=== PATIENT | female | born 1995 | race Caucasian/White ===

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

== ENCOUNTER 2017-04-08 21:04 | Emergency (ER) | payer SELFPAY ==
[~2017-04-08] VITALS: Ht 154.9 cm; Wt 45.4 kg
[~2017-04-08 21:04] MED LIST changes: +PHEN-640 PO; +SULF1TAB35 PO
[2017-04-08] MEDS ORDERED: RX-TOBRA/DEXAMETH (TOBRADEX) OP. SUSP 2.5 ML BTL OU STA (22:51)
--- NOTE | 2017-04-08 22:58 | ED EENT ---
History of Present Illness General Chief Complaint: Eye Problems Stated Complaint: SWOLLEN RIGHT EYE Nursing Triage Note: Ambulatory to ED 8 with reports of right eye redness, swelling, drainage and pain x 4-5 hours. Denies any known exposure. Reports pain is causing her to have a migraine. "Do you think I will be here long? This really, really hurts, and I know you guys are busy, but I don't want to keep hurting this bad." Source: patient Exam Limitations: no limitations History of Present Illness Time seen by provider: 22:40 Initial Comments Here with report of acute onset of right eye redness and purulent drainage. This started about 5 p.m. tonight. States that it does hurt. Also complains of sinus congestion and sinus infection for the last week. She is currently on Tamiflu. States that has not changed things much. Timing/Duration: abrupt Severity: moderate Location: eye (R) Prearrival Treatment: no prearrival treatment Associated Symptoms: No cough, facial pain/swelling, No fever, nasal congestion /drainage, sinus infection, No sore throat Allergies and Home Medications Allergies Coded Allergies: Cephalexin (Unverified Allergy, Mild, 11/08/08) Hydroxyzine (Unverified Allergy, Mild, 11/05/08) Home Medications Cephalexin Monohydrate 250 Mg/5 Ml Susp, 1.5 TSP PO QID for 5 Days, Ref 0 Prescribed by: DORA THOMPSON on 11/05/082327 Montelukast Sodium 10 Mg Tab, (Reported) Pedi Multivit No.7/Folic Acid 100 Mcg Tab.chew, (Reported) Phenazopyridine HCl 200 Mg Tablet, 1 TAB PO TID, #15 Prescribed by: JASMIN BAKER on 09/05/16 2334 Sulfamethoxazole/Trimethoprim 1 Each Tablet, 1 EACH PO BID, #30 Prescribed by: JASMIN BAKER on 09/05/16 2334 Trimethoprim/Sulfamethoxazole 30 Ml Susp, (Reported) [Lincomycin] , (Reported) Review of Systems Constitutional: see HPI, No chills, No fever Eyes: See HPI, Drainage, Inflammation, Pain Ears: No Symptoms Reported Nose: see HPI, congestion Mouth: no symptoms reported Throat: no symptoms reported Respiratory: no symptoms reported, No cough, No short of breath Cardiovascular: no symptoms reported Gastrointestinal: no symptoms reported Neurological: No Symptoms Reported Past Bgkwdzp-Xehgps-Lbievf Hx Patient Social History Alcohol Use: Denies Use Recreational Drug Use: No Smoking Status: Never a Smoker 2nd Hand Smoke Exposure: No Recent Foreign Travel: No Contact w/Someone Who Travel: No Recent Infectious Disease Expo: No Recent Hopitalizations: No Ebola Symptoms: Denies Symptoms Listed Physical Abuse: No Sexual Abuse: No Mistreated: No Fear: No Immunizations Up To Date Tetanus Booster (TDap): Less than 5yrs PED Vaccines UTD: Yes Seasonal Allergies Seasonal Allergies: Yes Surgeries History of Surgeries: Yes Surgeries: Adenoidectomy, Tonsillectomy Respiratory History of Respiratory Disorde: No Cardiovascular History of Cardiac Disorders: No Neurological History of Neurological Disord: No Reproductive System Female Reproductive Disorders: Denies Genitourinary History of Genitourinary Disor: No Genitourinary Disorders: Bladder Infection Gastrointestinal History of Gastrointestinal Di: No Musculoskeletal History of Musculoskeletal Dis: No Endocrine History of Endocrine Disorders: No HEENT History of HEENT Disorders: No Cancer History of Cancer: No Psychosocial History of Psychiatric Problem: No Suicide Risk Score: 0 Integumentary History of Skin or Integumenta: No Blood Transfusions History of Blood Disorders: No Reviewed Nursing Assessment Reviewed/Agree w Nursing PMH: Yes Family Medical History Significant Family History: No Pertinent Family Hx Physical Exam Vital Signs Vital Sign - Last 12Hours 04/08/17 21:22 Temp 98.4 Pulse 92 Resp 16 B/P (MAP) 124/83 O2 Delivery Room Air General Appearance: WD/WN, no apparent distress Eyes: right eye conjunctival inflammation, right eye lid inflammation, right eye other (purulent drainage noted to eye.), left eye normal inspection, bilateral eye PERRL, bilateral eye EOMI Ears: bilateral ear auricle normal, bilateral ear canal normal, bilateral ear TM normal Mouth/Throat: normal mouth inspection, pharynx normal Neck: full range of motion, supple Cardiovascular: regular rate, rhythm, no murmur Respiratory: lungs clear, normal breath sounds Gastrointestinal: non tender, soft Neurologic/Psychiatric: alert, oriented x 3 Skin: normal color, warm/dry Progress/Results/Core Measures Results/Orders My Orders Orders - ROSIBEL EDUARDO MD Rx-Tobramycin/Dexam. (Rx-Tobradex Op Latonya (04/08/17 22:51) Vital Signs/I&O Vital Sign - Last 12Hours 04/08/17 21:22 Temp 98.4 Pulse 92 Resp 16 B/P (MAP) 124/83 O2 Delivery Room Air Progress Note : Progress Note Seen and evaluated. Tobramycin eyedrops given. We will prescribe antibiotics for probable sinusitis. Patient is going to recheck her allergies at the pharmacy tomorrow and will start that then. Discharged home with return precautions. Patient verbalize understanding instructions and agreement with plan. Departure Impression Impression: Primary Impression: Bacterial conjunctivitis of right eye Additional Impression: Sinusitis, acute Qualified Codes: J01.90 - Acute sinusitis, unspecified Disposition: HOME, SELF-CARE Condition: Improved Departure-Patient Inst. Decision time for Depature: 22:57 Referrals: BRITTNEY MURRAY DO (PCP/Family) Primary Care Physician Patient Instructions: Conjunctivitis ([place]) (DC), Sinusitis, Adult (DC) Add. Discharge Instructions: All discharge instructions reviewed with patient and/or family. Voiced understanding. You may take ibuprofen 400 mg every 6 hours as needed for pain. You may take Tylenol 500 mg every 6 hours as needed for pain. Use eye drops as directed. Take other medications as directed. Follow-up with your Dr. in a few days for recheck. Return for worse pain, fever, vomiting, weakness, breathing problems, increased pain and or decreased vision of the right eye or other concerns as needed. You may use Afrin nasal spray or the generic, 12 hour relief, 2 sprays to each nostril twice daily for 3 days only and then stop. Do not use more than 3 days. Scripts Amoxicillin/Potassium Clav (Augmentin Es-600 Suspension) 600 Mg/5 Ml Susp.recon 5 ML PO BID, #100 ML Prov: ROSIBEL EDUARDO MD 04/08/17 ROSIBEL EDUARDO MD Apr 08, 2017 22:58
[2017-04-08] MEDS ORDERED: AMOX600S41 PO (22:59)
== END 2017-04-08 23:10 | disposition home or self-care (01) ==
LOC: EDUNIT# 21:04 → ER 21:06
DX: H10.89 Other conjunctivitis (principal); B96.89 Other specified bacterial agents as the cause of diseases classified elsewhere; J01.90 Acute sinusitis, unspecified; Z90.89 Acquired absence of other organs
CPT/HCPCS: 99282

== ENCOUNTER 2020-02-19 10:16 | Outpatient (RCR) | payer BC ==
[~2020-02-19 10:16] MED LIST changes: +AMOX600S41 PO
== END 2020-05-19 | disposition home or self-care (01) ==
LOC: CARD 10:16
PROVIDERS: ATTEND Internal Medicine
DX: R00.2 Palpitations (principal)
CPT/HCPCS: 93225; 93226

== ENCOUNTER → 2020-11-03 | Outpatient (CLI) | payer BC ==
--- NOTE | 2020-11-03 17:02 | Diagnostic Imaging Report ---
PROCEDURE: US Thyroid. TECHNIQUE: Multiple real-time grayscale images were obtained of the thyroid in various projections. INDICATION: Thyromegaly. Right lobe of thyroid measures 4.8 x 1.4 x 1.5 cm and the left lobe measures 4.1 x 1.1 x 1.6 cm. Isthmus is 3 mm in thickness. Both lobes show fairly homogeneous echotexture. There is a circumscribed hypoechoic nodule in the mid right lobe of the thyroid measuring 8 mm x 8 mm x 6 mm. No internal microcalcifications are seen. The left lobe is unremarkable. IMPRESSION: Subcentimeter right lobe thyroid nodule. The study is otherwise unremarkable. No dominant thyroid mass is detected. Dictated by: Dictated on workstation # [id number]
== END ==
LOC: RAD 15:00
PROVIDERS: ATTEND Nurse Practitioner Family
DX: E04.1 Nontoxic single thyroid nodule (principal)
CPT/HCPCS: 76536

== ENCOUNTER 2021-06-25 21:14 | Emergency (ER) | payer BC ==
[~2021-06-25] VITALS: Ht 154.9 cm; Wt 61.2 kg
[~2021-06-25 21:14] MED LIST changes: -SULF1TAB35 PO; +SULF1TAB38 PO
[2021-06-25 21:30] VITALS: BP 150/91
[2021-06-25] MEDS ORDERED: hydrOXYzine (VISTARIL/ATARAX) 25 MG capsule/tablet PO ONE (21:45)
[2021-06-25] MEDS ORDERED: LORazepam 0.5 MG (ATIVAN) TABLET PO ONE (21:45)
[2021-06-25] MEDS ORDERED: LORA-404 PO (21:45)
--- NOTE | 2021-06-25 21:45 | ED Psychosocial ---
General Stated Complaint: HEART PALPITATIONS/WEAKNESS/SHAKY Source: patient Exam Limitations: no limitations History of Present Illness Date Seen by Provider: Jun 25, 2021 Time Seen by Provider: 21:30 Initial Comments The patient presents to the ER by private conveyance with chief complaint of heart palpitations, strong pulse palpable on her neck and hearing her heart beating in her ears. She felt a little weak and shaky but not sweaty no fever. No shortness of air cough nausea vomiting or diarrhea. She states that she got so short of breath so she had stepped outside and then she started to feel little bit of nausea but never vomited. She has had a lot of work-up by Dr. Kelsi Guo primary care outpatient including a Holter monitor which was lost. She was told that if the symptoms persist she would have to wear an event monitor. She was recently started 2 days ago on metoprolol 12.5 mg. She does not feel that has made a huge change in her symptoms. She is also on bupropion. No other personal or family medical history. Mom is a smoker with asthma. She uses CBD oil and nicotine through a vaporizer and states that helps with her symptoms. Allergies and Home Medications Allergies Coded Allergies: Cephalexin (Unverified Allergy, Mild, 11/08/08) Hydroxyzine (Unverified Allergy, Mild, 11/05/08) Patient Home Medication List Home Medication List Reviewed: Yes Amoxicillin/Potassium Clav (Augmentin Es-600 Suspension) 600 Mg/5 Ml Susp.recon, 5 ML PO BID Prescribed by: ROSIBEL EDUARDO on 04/08/17 225 Cephalexin Monohydrate (Keflex Susp) 250 Mg/5 Ml Susp, 1.5 TSP PO QID Prescribed by: DORA THOMPSON on 11/05/08 2328 Lorazepam (Ativan) 0.5 Mg Tablet, 0.5 MG PO TID PRN for ANXIETY Prescribed by: AMENA GUPTA on 06/25/212144 Montelukast Sodium (Singulair) 10 Mg Tab, (Reported) Entered as Reported by: OLIVIA YANES on 11/05/082207 Pedi Multivit No.7/Folic Acid (Flintstones Tab Chew) 100 Mcg Tab.chew, (Reported) Entered as Reported by: OLIVIA YANES on 11/05/082208 Phenazopyridine HCl (Pyridium) 200 Mg Tablet, 1 TAB PO TID Prescribed by: JASMIN BAKER on 09/05/162333 Sulfamethoxazole/Trimethoprim (Bactrim Ds Tablet) 1 Each Tablet, 1 EACH PO BID Prescribed by: JASMIN BAKER on 09/05/162333 Trimethoprim/Sulfamethoxazole (Bactrim Susp 200 Mg-40MG/5 Ml) 30 Ml Susp, (Reported) Entered as Reported by: GENESIS ABDALLA on 11/08/081331 [Lincomycin] , (Reported) Entered as Reported by: GENESIS ABDALLA on 11/08/081333 Review of Systems Constitutional: No chills, No diaphoresis EENTM: No ear discharge, No ear pain Respiratory: No cough, No short of breath Cardiovascular: No chest pain, No Hx of Intervention; palpitations; No syncope, No vascular heart diseas Gastrointestinal: No abdominal pain; nausea; No vomiting Genitourinary: No discharge, No dysuria Musculoskeletal: No back pain, No joint pain All Other Systems Reviewed Negative Unless Noted: Yes Past Bmpeggr-Jsfphp-Nuojlv Hx Patient Social History Tobacco Use?: No Use of E-Cig and/or Vaping dev: Yes E-Cig or Vaping type used: Nicotine, CBD Substance use?: No Immunizations Up To Date Tetanus Booster (TDap): Less than 5yrs PED Vaccines UTD: Yes Seasonal Allergies Seasonal Allergies: Yes Past Medical History Surgeries: Yes Adenoidectomy, Tonsillectomy Respiratory: No Cardiac: No Neurological: No Female Reproductive Disorders: Denies Genitourinary: No Bladder Infection Gastrointestinal: No Musculoskeletal: No Endocrine: No HEENT: No Cancer: No Psychosocial: No Integumentary: No Blood Disorders: No Family Medical History No Pertinent Family Hx Physical Exam Vital Signs - First Documented 06/25/21 21:30 Temp 36.4 Pulse 95 Resp 20 B/P (MAP) 150/91 (110) Pulse Ox 100 O2 Delivery Room Air Capillary Refill : Height, Weight, BMI Height: 5'1.00" Weight: 100lbs. oz. 45.822612nr; 14.06 BMI Method:Stated General Appearance: WD/WN, no apparent distress HEENT: PERRL/EOMI, pharynx normal Neck: full range of motion, normal inspection Respiratory: lungs clear, normal breath sounds, no respiratory distress, no accessory muscle use Cardiovascular: normal peripheral pulses, regular rate, rhythm Peripheral Pulses: 2+ Radial Pulses (R), 2+ Radial Pulses (L) Gastrointestinal: normal bowel sounds, non tender, soft Neurologic/Psychiatric: alert, oriented x 3, other (Mildly anxious affect) Skin: normal color, warm/dry Progress/Results/Core Measures Results/Orders My Orders Orders - AMENA GUPTA Ekg Tracing (06/25/21 21:38) Continuous Ekg Monitoring (06/25/21 21:38) Hydroxyzine Cap/Tab (Vistaril) (06/25/21 21:45) Lorazepam Tablet (Ativan Tablet) (06/25/21 21:45) Medications Given in ED Current Medications Medications Dose Ordered Sig/Shannen Route Start Time Stop Time Status Last Admin Dose Admin Hydroxyzine Pamoate 25 mg ONCE ONCE PO 06/25/21 21:45 06/25/21 21:48 DC 06/25/21 21:48 25 MG Lorazepam 0.5 mg ONCE ONCE PO 06/25/21 21:45 06/25/21 21:48 DC 06/25/21 21:48 0.5 MG Vital Signs/I&O 06/25/21 21:30 Temp 36.4 Pulse 95 Resp 20 B/P (MAP) 150/91 (110) Pulse Ox 100 O2 Delivery Room Air Progress Progress Note #1: Time: 21:43 Progress Note Patient appears to be having anxiety attack. She is not tachycardic with heart rate around 100 or less. We will get an EKG to rule out dysrhythmia. This is been going on for over a year and can be worked up outpatient. She has a allergy stated to hydroxyzine so we will give her half milligram of Ativan and have her follow-up with Dr. Guo. Progress Note #2: Time: 22:08 Progress Note The patient states she already feels much better after the Ativan. Were going to allow her to go home and follow-up outpatient. No dysrhythmias on the monitor. Initial ECG Impression Date: Jun 25, 2021 Initial ECG Impression Time: 21:35 Initial ECG Rate: 81 Initial ECG Rhythm: Normal Sinus Initial ECG Intervals: Normal Initial ECG Impression: Normal Comment Normal sinus rhythm without clinically relevant ST changes Departure Impression Primary Impression: Palpitations with regular cardiac rhythm Disposition: HOME, SELF-CARE Condition: Stable Departure-Patient Inst. Decision time for Depature: 22:09 Referrals: BRITTNEY GUO DO (PCP/Family) Primary Care Physician Patient Instructions: Palpitations (DC) Add. Discharge Instructions: There is no evidence of a dysrhythmia today. Likely this is some component of anxiety and there may be something else underlying but it would have to be discovered on a monitor study or event monitor that you wear to track the electrical tracing of your heart when you are having these events. If it comes on again you may try 1 tablet of Ativan half a milligram every 8 hours as necessary to break the cycle. Continue taking your medications as prescribed and follow-up with Dr. Guo to discuss how the medications are working for you. Scripts Lorazepam (Ativan) 0.5 Mg Tablet 0.5 MG PO TID PRN for ANXIETY for 7 Days, #10 TAB 0 Refills Prov: AMENA GUPTA 06/25/21 Copy Copies To 1: BRITTNEY GUO TITUS J Jun 25, 2021 21:45
== END 2021-06-25 22:12 | disposition home or self-care (01) ==
LOC: EDUNIT# 21:14 → ER 21:15
DX: R00.2 Palpitations (principal)
CPT/HCPCS: 93005